=== PATIENT | male | born 1950 | race Caucasian/White ===

== ENCOUNTER → 2017-10-30 | Outpatient (CLI) | payer MEDICARE ==
[2017-01-12 12:46] VITALS: BMI 48.7
[~2017-10-30] MED LIST: ACET650T40 PO; ALBU2.5V36 INH; ALLO-119 PO; ASPI-816 PO; Ardosons PO; BISA1KIT MC; CEF300 PO; CEP500 PO; CEPH-13 PO; CHOL10005 PO; CHRO1TAB2 PO; DOCU-202 PO; DOX100 PO; FENT-23 TD; FOLI-68 PO; FURO-45 PO; GUAI480S48 PO; HYDR-4240 PO; INF100I IV; LOSA50TA72 PO; METF-410 PO; METH2.5T43 PO; MOM PO; NAP500; NYST100016 PO; ONDA4TAB97 PO; OXYC-763 PO; OXYC-865 PO; PANT40TA65 PO; PNEU0.5D3 IM; PRED-1 PO; PRED-420 PO; PRED20TA6 PO; SIMV-49 PO; SPIR25TA78 PO; TRAM-420 PO; [UNRECOGNIZED DRUG - OTHER] PO
[2017-10-30 11:15] LABS: PLATELET COUNT, AUTOMATED 216 K/uL (150-450)
[2017-10-30 11:37] LABS: LDL CHOLESTEROL 92 mg/dl
--- NOTE | 2017-10-30 13:35 | RADIOLOGY IMAGING REPORT ---
FACILITY: [facility] [place] PATIENT NAME: Renzo Akbar : 1950 MR: [id number] V: [id number] EXAM DATE: ORDERING PHYSICIAN: CELE CHOWDHURY TECHNOLOGIST: Location: [facility] Patient: Renzo Akbar : 1950 Visit/Account:[id number] Date of Sevice: 10/30/2017 SHOULDER MIN 2 VIEWS RIGHT Indication: Arthritis for one year, shoulder pain Comparison: None. Findings: Clavicle scapula and proximal humerus are intact. There is narrowing of the glenohumeral a nd subacromial joint. There are spurs at the acromioclavicular joint. IMPRESSION: 1. No fracture or dislocation. 2. Osteoarthritis and findings consistent with rotator cuff pathology. Report Dictated By: Tristian Albright at 10/30/2017 1:30 PM Report E-Signed By: Tristian Albright at 10/30/2017 1:31 PM WSN:[email or web address]
== END ==
LOC: RAD 10:43
PROVIDERS: ATTEND Internal Medicine
DX: M75.101 Unspecified rotator cuff tear or rupture of right shoulder, not specified as traumatic (principal); E11.9 Type 2 diabetes mellitus without complications; E78.5 Hyperlipidemia, unspecified; M06.9 Rheumatoid arthritis, unspecified; I10 Essential (primary) hypertension; M10.9 Gout, unspecified; E55.9 Vitamin D deficiency, unspecified
CPT/HCPCS: 36415; 81001; 82040; 82247; 82306; 82310; 82374; 82435; 82465; 82565; 82947; 83036; 83718; 84075; 84132; 84155; 84295; 84443; 84450; 84460; 84478; 84520; 84550; 85025

== ENCOUNTER → 2018-01-08 | Outpatient (CLI) | payer MEDICARE ==
[2017-01-12 12:46] VITALS: BMI 48.7
[~2018-01-08] MED LIST changes: -ASPI-816 PO; +ASPI-870 PO; -METF-410 PO; +METF-411 PO
== END ==
LOC: LAB 12:03
PROVIDERS: ATTEND Nurse Practitioner
DX: C44.319 Basal cell carcinoma of skin of other parts of face (principal); C44.311 Basal cell carcinoma of skin of nose
CPT/HCPCS: 88305

== ENCOUNTER → 2018-01-20 | Outpatient (CLI) | payer MEDICARE ==
[2017-01-12 12:46] VITALS: BMI 48.7
[~2018-01-20] MED LIST changes: +NYST15CR32 TP
== END ==
LOC: LAB 12:53
PROVIDERS: ATTEND Internal Medicine
DX: M06.9 Rheumatoid arthritis, unspecified (principal); E11.9 Type 2 diabetes mellitus without complications; E78.5 Hyperlipidemia, unspecified; I10 Essential (primary) hypertension
CPT/HCPCS: 36415; 82040; 82247; 82310; 82374; 82435; 82465; 82565; 82947; 83036; 83718; 84075; 84132; 84155; 84295; 84450; 84460; 84478; 84520

== ENCOUNTER → 2018-05-06 | Outpatient (CLI) | payer MEDICARE ==
[2017-01-12 12:46] VITALS: BMI 48.7
[~2018-05-06] MED LIST changes: -SPIR25TA78 PO; +SPIR25TA80 PO
== END ==
LOC: LAB 13:39
PROVIDERS: ATTEND Internal Medicine
DX: E11.9 Type 2 diabetes mellitus without complications (principal); E78.5 Hyperlipidemia, unspecified; I10 Essential (primary) hypertension
CPT/HCPCS: 36415; 82040; 82247; 82310; 82374; 82435; 82465; 82565; 82947; 83036; 83718; 84075; 84132; 84155; 84295; 84450; 84460; 84478; 84520

== ENCOUNTER → 2019-02-18 | Outpatient (CLI) | payer MEDICARE ==
[2017-01-12 12:46] VITALS: BMI 48.7
[~2019-02-18] MED LIST changes: +FLU180SY11 IM; +LOSA100T75 PO; -LOSA50TA72 PO; +LOSA50TA80 PO; +METF-407 PO; -METF-411 PO; +METF-450 PO; +METF500T4 PO; +PNEI IJ; +SIMV-54 PO; +VARI50KI IM
[2019-02-18 10:57] LABS: PLATELET COUNT, AUTOMATED 202 K/uL (150-450)
== END ==
LOC: LAB 10:19
PROVIDERS: ATTEND Internal Medicine
DX: M06.9 Rheumatoid arthritis, unspecified (principal); I10 Essential (primary) hypertension; E78.5 Hyperlipidemia, unspecified; E11.9 Type 2 diabetes mellitus without complications; E66.9 Obesity, unspecified
CPT/HCPCS: 36415; 81001; 82040; 82247; 82306; 82310; 82374; 82435; 82465; 82565; 82947; 83036; 83718; 84075; 84132; 84155; 84295; 84443; 84450; 84460; 84478; 84520; 84550; 85025